=== PATIENT | male | born 1955 | race Asian ===

== ENCOUNTER 2024-11-19 10:57 | Day surgery (SDC) | payer OTHER, SELFPAY ==
[2024-11-12 09:43] VITALS: BMI 21.3
[2024-11-12 10:07] LABS: % Basophils 0.3 % (0-2); % Eosinophils 3.4 % (0-6); % Immature Granulocytes 0.3 % (0-0.5); % Lymphocytes 31.6 % (20.5-51.1); % Monocytes 5.7 % (1.7-9.3); % Neutrophils 58.7 % (42.2-75.2); Absolute Eosinophils 0.2 10^3/uL (0-0.7); Absolute Lymphocytes 1.8 10^3/uL (1.2-3.4); Absolute Monocytes 0.3 10^3/uL (0.1-0.6); Absolute Neutrophils 3.4 10^3/uL (1.4-6.5); Hematocrit 44.5 % (39.0-52.0); Hemoglobin 14.7 g/dL (13.0-18.0); Mean Corpuscular Volume 93.9 fL (80.0-94.0); Mean Platelet Volume 10.4 fL (7.4-10.4); Nucleated Red Blood Cells % 0 % (-); Platelet Count 151 10^3/uL (130-400); Red Blood Cell Count 4.74 10^6/uL (4.70-6.10); Red Cell Dist. Width 12.6 % (11.5-14.5); White Blood Cell Count 5.8 10^3/uL (4.8-10.8)
[2024-11-12 10:46] LABS: ALT (SGPT) 20 U/L (0-50); AST (SGOT) 29 U/L (17-59); Albumin 4.7 g/dl (3.5-5.0); Alkaline Phosphatase 72 U/L (38-126); Blood Urea Nitrogen 27 mg/dl (9-20); Calcium 9.6 mg/dl (8.4-10.2); Carbon Dioxide 29 mmol/L (22-30); Chloride 103 mmol/L (98-107); Estimated Creatinine Clearance 74 ml/min; Glucose 127 mg/dl (70-99); Magnesium 2.2 mg/dl (1.6-2.3); Potassium 4.7 mmol/L (3.5-5.1); Sodium 139 mmol/L (135-145); Total Protein 7.5 g/dl (6.3-8.2); eGFR > 60.00
[2024-11-19] VITALS (7 sets, daily range): BP systolic 132–175; BP diastolic 56–79; BMI 21.3
[2024-11-19 12:28] LABS: Glucose - Point of Care 115 mg/dl (70-99)
--- NOTE | 2024-11-19 18:29 | ITS.CL.PACE ---
[facility] - Pacemaker Implant
Pacemaker Implant
Procedure Report:
PACEMAKER IMPLANT REPORT
Primary Care Provider: Michael Mead MD
Primary pipe inspector: Surjit Salgado MD
Date of Procedure: November 19, 2024
Procedure:
Implantation of dual-chamber permanent pacemaker utilizing the left bundle branch for conduction system pacing
Indication/Diagnosis:
Non-reversible symptomatic bradycardia due to sinus node dysfunction.
After informed consent was obtained, 'time out' was called and confirmed, the patient was prepped and draped in a sterile fashion. Lidocaine with epi was used for local anesthesia. Central venous access was obtained via subclavian venipuncture. An
incision was made along the left chest and a pre-pectoral pocket was formed. Using a Seldinger technique and peel-away sheaths, the pacing leads were placed under fluoroscopic guidance.
Fluoroscopy was used to determine likely anatomic site for left bundle branch pacing. The Clean Wave [employer]iest[employer] C315 sheath was used to deliver the Medtronic 3830 Selectsecure pacing lead with the helix exposed just exposed from the sheath tip during continuous
monitoring when pacemapping the septum during gentle clockwise rotation to obtain a paced QRS morphology of a W pattern in lead V1. Once the suspected optimal site was identified, lead deployment was performed with several rapid rotations as paced
QRS morphology was intermittently monitored until a paced QRS complex in lead V1 demonstrated development of an R wave [ ] (qR or rSR).
Unipolar pacing impedance dropped by approximately 100 Ohms suggesting it had reached the left ventricular subendocardial.
Stable VEgm injury current is present throughout final lead position including at end of case, suggesting there was no perforation through the septum into the LV cavity.
Unipolar pacing impedance is 1100 Ohms
Unipolar pacing threshold is stable at 1 V @ 0.4 ms.
Final conduction system paced QRS complex duration is 100 ms
LVAT is 78 ms and peak V5 -> peak V1 timing is 42 ms
There is QRS transition to LVSP / selective LBBP during threshold testing
Right atrial lead was placed at the RAA.
Once testing (see below) showed adequate and stable function, the leads were secured using the suture sleeves. The pocket was liberally irrigated with antibiotic solution. The leads were connected to the generator header and the leads and
generator were placed within the pocket. Fluoroscopy confirmed stable lead position. The pocket was closed in the typical fashion.
Fluoroscopy was used to guide lead placement.
IMPLANTS:
Medtronic [id number], SN: [id number], Left Pectoral
RA: Medtronic 5076-45, SN: [id number] [id number] [id number], RAA
Left Bundle: Medtronic 3830 , SN:[id number], Interventricular septum at LBB
DEVICE TESTING:
Sensing: RA 3.6 mV, RV 7 mV
Capture: RA 0.5 V@0.4ms, RV 0.75 V@0.4ms
Ohms: RA 779, RV 798 (bipolar)
FINAL PROGRAMMING
Ashok Pacing: AAIR+ 60-130 ppm
COMPLICATIONS:
None
CONCLUSIONS:
Successful implant of dual chamber permanent pacemaker utilizing Left Bundle Branch conduction system capture for ventricular resynchronization pacing.
RECOMMENDATIONS:
1. Post-op care (tele, CXR, IV abx)
2. In-Office wound check in 5-7 days
Copy to: Dr Surjit Salgado
[2024-11-19 18:36] LABS: Glucose - Point of Care 87 mg/dl (70-99)
[2024-11-19 18:55] LABS: Glucose - Point of Care 79 mg/dl (70-99)
--- NOTE | 2024-11-19 19:01 | PTCARENOTE ---
Received pt S/P pacemaker. VSS, monitor showing Apaced/SR. Left chest wall with pressure dressing intact, immobilizer in place, +CMS check to hand & fingers. at bedside, call marcial in reach.
[2024-11-19] MEDS: TYLENOL 650 MG PO (21:03)
[2024-11-19] MEDS: ANCEF 5 IV (22:25)
[2024-11-19] MEDS: ROXICODONE 5 MG PO (22:55)
--- NOTE | 2024-11-20 00:50 | PTCARENOTE ---
Assumed care of the pt @ 1900. Pt is AAOx3 at bedside left chest wall pacer site dressing c/d/i with left arm immobilizer in place. A paced on the monitor. VSS. Pt c/o left chest pain that radiates to left side head. Otto Reynoso notified and
ordered Oxycodone. CXR done. Call marcial within reach. Pt was instructed on POC and verbalized understanding.
[2024-11-20 02:46] VITALS: BP 141/76
[2024-11-20] MEDS: TYLENOL 650 MG PO (02:54)
[2024-11-20 03:07] LABS: Hematocrit 40.7 % (39.0-52.0); Hemoglobin 13.6 g/dL (13.0-18.0); Mean Corp Hgb Conc. 33.4 g/dL (33.0-37.0); Mean Corpuscular Volume 92.7 fL (80.0-94.0); Mean Platelet Volume 10.3 fL (7.4-10.4); Platelet Count 131 10^3/uL (130-400); Red Blood Cell Count 4.39 10^6/uL (4.70-6.10); Red Cell Dist. Width 12.3 % (11.5-14.5)
[2024-11-20 03:08] VITALS: BMI 20.5
[2024-11-20 03:21] LABS: Blood Urea Nitrogen 27 mg/dl (9-20); Calcium 8.9 mg/dl (8.4-10.2); Carbon Dioxide 26 mmol/L (22-30); Chloride 108 mmol/L (98-107); Estimated Creatinine Clearance 81 ml/min; Glucose 90 mg/dl (70-99); Magnesium 1.9 mg/dl (1.6-2.3); Potassium 4.1 mmol/L (3.5-5.1); Sodium 139 mmol/L (135-145); eGFR > 60.00
[2024-11-20] MEDS: ANCEF 5 IV (06:18)
[2024-11-20] MEDS: ROXICODONE 5 MG PO (06:23)
[2024-11-20 07:48] VITALS: BP 121/76
[2024-11-20 08:44] LABS: Glycohemoglobin (HgbA1c) 6.5 % (4.0-5.6)
[2024-11-20] MEDS: DIOVAN 160 MG PO (08:51)
[2024-11-20] MEDS: LEXAPRO 10 MG PO (08:51)
[2024-11-20] MEDS: IMODIUM 2 MG PO (08:51)
[2024-11-20] MEDS: ORETIC 12.5 MG PO (08:55)
[2024-11-20 09:16] LABS: Glucose - Point of Care 94 mg/dl (70-99)
--- NOTE | 2024-11-20 10:04 | CM ---
Reviewed chart. Met with Mr. Sethi to review discharge plans. Used the language line with a Welsh parts interpreter to conduct the interview. He states prior to admission he resides with his spouse in a third floor walk-up condo. He states he has a one
level living once in the apartment. He states prior to admission he was independent with ambulation and adls. He states he does not have any DME in the home. He states he has a prescription plan and uses [facility]. The discharge plan is to
return home with his spouse when medically stable.
--- NOTE | 2024-11-20 10:08 | W.PN.CARDCBS ---
Addendum entered and electronically signed by Gil Delatorre MD 11/20/24 10:22:
Patient seen and examined
Agree with MAGNETIC TAPE COMPOSER OPERATOR note and assessment
Agree with MAGNETIC TAPE COMPOSER OPERATOR plan
Exam:
Pacemaker site clean dry and intact
No hematoma
Chest x-ray reviewed with stable right atrial and left bundle branch area sites for leads no pneumothorax
Appropriate atrial pacing and sensing and appropriate ventricular sensing on telemetry
Cor regular
On x 3
Nonfocal neurologically
Impression:
Symptomatic bradycardia
post DC PPM Medtronic 11/19/24
HTN
HLD
NIDDM
Anxiety/Depression
RUL 6mm nodule (incidental finding)
Plan:
post device site stable
tele Apaced
CXR no PTX but noted 6mm RUL nodule
Hold Metfomin 48 hours post procedure
Activity restrictions reviewed
inc check 1 week DCA
PCP follow-up regarding lung nodule
home today
Original Note:
Today's Communication / Plan
-
stable for d/c home
Impression / Plan
-
Primary Care Provider: Michael Mead MD
Primary broommaking supervisor: Surjit Salgado MD
Impression:
Symptomatic bradycardia
post DC PPM Medtronic 11/19/24
HTN
HLD
NIDDM
Anxiety/Depression
RUL 6mm nodule (incidental finding)
Plan:
post device site stable
tele Apaced
CXR no PTX but noted 6mm RUL nodule (no Xray to compare)
Hold Metfomin 48 hours post procedure
Activity restrictions reviewed
inc check 1 week DCA
reviewed instructions with son/pt via phone
Will f/u PCP re: lung nodule, report given to pt
home today
Progress Note - Telephone Order Dispatcher
Subjective
Date of Service: November 20, 2024
mild inc pain, no cp, sob
Objective
Labs:
11/20/24 02:56
11/20/24 02:56
Labs
Hgb 13.6 g/dL (13.0-18.0) 11/20/24 02:56
Hct 40.7 % (39.0-52.0) 11/20/24 02:56
Plt Count 131 10^3/uL (130-400) 11/20/24 02:56
Sodium 139 mmol/L (135-145) 11/20/24 02:56
Potassium 4.1 mmol/L (3.5-5.1) 11/20/24 02:56
BUN 27 mg/dl (9-20) H 11/20/24 02:56
Creatinine 0.7 mg/dL (0.7-1.3) 11/20/24 02:56
Glucose 90 mg/dl (70-99) 11/20/24 02:56
Vital Signs and I&O:
Vital Signs
Temp Pulse Resp BP Pulse Ox
98.2 F 60 20 121/76 98
11/20/24 08:32 11/20/24 09:30 11/20/24 08:32 11/20/24 07:48 11/20/24 08:32
Vital Signs
Temp Pulse Resp BP Pulse Ox
98.2 F 60 20 121/76 98
11/20/24 08:32 11/20/24 09:30 11/20/24 08:32 11/20/24 07:48 11/20/24 08:32
Physical Exam
Physical Exam
NAD< AOX3
S1, S2, RRR
CTAB, non labored, no wheeze
SNTND Bsx4
L CW Dressing c/d/i no HT, pressure dressing removed
--- NOTE | 2024-11-20 10:46 | PTCARENOTE ---
Addendum entered by Ailyn Augustin RN 11/20/24 10:48:
Post pacemaker discharge instructions were also provided in Italian from [employer] patient education information.
Original Note:
Discharge instructions reviewed with Pt using Italian video electrical engineering teacher. Pt expressed understanding. He was also able to ask some questions and answers were provided to his questions.
--- NOTE | 2024-11-20 14:20 | W.DS.TRANS ---
DC Summary - Drying Machine Tender
-
Discharge Instructions:
Discharge Diagnosis/Procedures Pacemaker implant
Diet Diabetic, Carb Controlled,Low Sodium
Driving Restrictions No driving for 1 week
Bathing Restrictions OK to Shower
Instructions:
Stand-Alone Forms: DC Inst - Implanted Device
Changes to Home Medications: No
Discharge Medications:
DC Medications w/original date entered in [employer]
ascorbic acid (vitamin C) 1,000 mg tablet (Vitamin C) 1 g PO DAILY 11/11/24
cholecalciferol (vitamin D3) 50 mcg (2,000 unit) capsule (Vitamin D3) 50 mcg PO DAILY 11/11/24
escitalopram oxalate 10 mg tablet 10 mg PO DAILY 11/11/24
loperamide 2 mg tablet 2 mg PO DAILY 11/11/24
magnesium 200 mg tablet 400 mg PO DAILY 11/11/24
metformin 500 mg tablet 500 mg PO DAILY 11/11/24
valsartan 160 mg-hydrochlorothiazide 12.5 mg tablet 1 tab PO DAILY 11/11/24
Home Medication Changes
Pending Results: No
== END 2024-11-20 11:00 | disposition home or self-care (01) ==
LOC: CATH 10:57
PROVIDERS: Nurse Practitioner Adult Health; ATTENDING PHYSICIAN Internal Medicine Cardiovascular Disease; FAMILY PHYSICIAN Internal Medicine; OTHER PHYSICIAN Internal Medicine Cardiovascular Disease
DX: I49.5 Sick sinus syndrome (principal); I11.9 Hypertensive heart disease without heart failure; E78.5 Hyperlipidemia, unspecified; E11.9 Type 2 diabetes mellitus without complications; Z79.84 Long term (current) use of oral hypoglycemic drugs; F41.9 Anxiety disorder, unspecified; F32.A Depression, unspecified; Z79.899 Other long term (current) drug therapy; R91.1 Solitary pulmonary nodule; I25.10 Atherosclerotic heart disease of native coronary artery without angina pectoris
CPT/HCPCS: 33208; 36415; 71045; 80048; 80053; 82962; 83036; 83735; 85025; 85027; 93005; C1769; C1785; C1887; C1892; C1898; Q9967